=== PATIENT | female | born 1965 | race Native Hawaiian/Other Pacific Islander ===

== ENCOUNTER 2023-06-22 09:52 | Observation (INO) | payer OTHER ==
[~2023-06-22] VITALS: Ht 157.5 cm; Wt 111.2 kg
[2023-06-22 09:53] VITALS: BP 149/74; TEMP 98
[2023-06-22 10:27] LABS: PLATELET COUNT 285 K/uL (152-353)
[2023-06-22 10:33] LABS: POTASSIUM 3.5 mmol/L (3.6-5.2)
[2023-06-22 13:53] VITALS: BP 112/65; TEMP 97.6
[2023-06-22 16:37] VITALS: BP 112/65; TEMP 97.6; Ht 157.5 cm; Wt 111.2 kg
[2023-06-22] MEDS ORDERED: DULO60CA2 PO (17:31)
[2023-06-22] MEDS ORDERED: GLIP10TA55 PO (17:31)
[2023-06-22] MEDS ORDERED: CARV12.5 PO (17:31)
[2023-06-22] MEDS ORDERED: RANO500T PO (17:36)
[2023-06-22] MEDS ORDERED: FURO40TA93 PO (17:37)
[2023-06-22] MEDS ORDERED: LIPITOR40 MG PO (17:37)
[2023-06-22] MEDS ORDERED: MONT10TA PO (17:38)
[2023-06-22] MEDS ORDERED: ISOS30TA17 PO (17:38)
[2023-06-22] MEDS ORDERED: PIOG30TA PO (17:39)
[2023-06-22] MEDS ORDERED: GABA300C2 PO (17:40)
[2023-06-22] MEDS ORDERED: KLOR-CON M2020 MEQ PO (17:40)
[2023-06-22] MEDS ORDERED: TRAM50TA PO (17:41)
[2023-06-22] MEDS ORDERED: LISI5TAB10 PO (17:42)
[2023-06-22] MEDS ORDERED: OZEMPIC2 MG/1.5 M SC (17:45)
[2023-06-22 20:00] VITALS: BP 129/58; TEMP 97.8
[2023-06-22 23:42] VITALS: BP 120/50; TEMP 98.4
[2023-06-23 03:52] VITALS: BP 117/64; TEMP 98
[2023-06-23 05:06] LABS: PLATELET COUNT 248 K/uL (152-353)
[2023-06-23 05:21] LABS: POTASSIUM 3.4 mmol/L (3.6-5.2)
[2023-06-23 08:00] VITALS: BP 109/51; TEMP 97.5
[2023-06-23 12:06] VITALS: BP 153/66; TEMP 98.2
[2023-06-23 16:00] VITALS: BP 106/57; TEMP 97.3
[2023-06-23 20:00] VITALS: BP 142/58; TEMP 98.6
[2023-06-23 23:36] VITALS: BP 130/49; TEMP 98
[2023-06-24 03:34] VITALS: BP 149/44; TEMP 98.4
[2023-06-24 08:00] VITALS: BP 124/61; TEMP 97.5
== END 2023-06-24 10:00 | disposition home or self-care (01) ==
LOC: ED 09:52 → MED/SURG 11:25
PROVIDERS: Family Medicine; ADMIT Internal Medicine Endocrinology, Diabetes & Metabolism; ATTEND Internal Medicine Endocrinology, Diabetes & Metabolism
DX: R07.89 Other chest pain (principal); R06.02 Shortness of breath; R05.9 Cough, unspecified; R04.2 Hemoptysis; E11.9 Type 2 diabetes mellitus without complications; I25.10 Atherosclerotic heart disease of native coronary artery without angina pectoris; Z86.73 Personal history of transient ischemic attack (TIA), and cerebral infarction without residual deficits; I10 Essential (primary) hypertension; E78.49 Other hyperlipidemia; E66.9 Obesity, unspecified; Z68.41 Body mass index [BMI] 40.0-44.9, adult; R42 Dizziness and giddiness
CPT/HCPCS: 36415; 80053; 82550; 82948; 84484; 85027; 85379; 87635; 93005; 96361; 96366; 96367; 96372; 96374; 96375; 99221; 99284; G0378; J2270; J2405; U0003